=== PATIENT | male | born 1965 | race Caucasian/White ===

== ENCOUNTER 2017-01-12 19:30 | Inpatient (IN) | payer OTHER ==
[~2017-01-12] VITALS: Ht 170.2 cm; Wt 116.4 kg
[2017-01-12 21:25] LABS: BASOPHIL % 0.4 % (0-2); PLATELET COUNT 315 x10^3mcL (130-400); RED CELL DISTRIBUTION WIDTH 13.1 % (11.5-14.5)
[2017-01-12 21:33] LABS: CALCIUM 8.5 mg/dL (8.5-10.1); CARBON DIOXIDE 27.8 mmol/L (21-32); CHLORIDE SERUM 104 mmol/L (98-107); CREATININE SERUM 0.9 mg/dL (0.7-1.3); GFR1 > 60 mL/min; GLUCOSE SERUM 120 mg/dL (74-106); POTASSIUM SERUM 3.6 mmol/L (3.5-5.1); SODIUM SERUM 139 mmol/L (136-145)
[2017-01-12 21:38] LABS: ALBUMIN 3.5 g/dL (3.4-5.0); ALKALINE PHOSPHATASE 81 U/L (46-116); ALT/SGPT 50 U/L (16-63); AST/SGOT 12 U/L (15-37); BILIRUBIN TOTAL 0.3 mg/dL (0.20-1.00); TOTAL PROTEIN, SERUM 7.2 g/dL (6.4-8.2)
[2017-01-12 21:50] LABS: CK-MB 0.8 ng/mL (0-3.6)
[2017-01-13] VITALS (7 sets, daily range): BP systolic 101–122; BP diastolic 54–73
[2017-01-13 06:58] LABS: microscopic required? NO
[2017-01-13 07:10] LABS: BASOPHIL % 0.3 % (0-2); PLATELET COUNT 294 x10^3mcL (130-400); RED CELL DISTRIBUTION WIDTH 12.8 % (11.5-14.5)
[2017-01-13 07:36] LABS: CHOLESTEROL/HDL RATIO 4.3
[2017-01-13 07:37] LABS: CALCIUM 8.3 mg/dL (8.5-10.1); CARBON DIOXIDE 25.6 mmol/L (21-32); CHLORIDE SERUM 106 mmol/L (98-107); CREATININE SERUM 0.8 mg/dL (0.7-1.3); GFR1 > 60 mL/min; GLUCOSE SERUM 101 mg/dL (74-106); PHOSPHOROUS 3.2 mg/dL (2.5-4.9); SODIUM SERUM 140 mmol/L (136-145)
[2017-01-13 07:44] LABS: T3 TOTAL 0.95 ng/mL
[2017-01-13 07:58] LABS: FREE T4 0.87 ng/dL (0.76-1.46); FREE THYROXINE INDEX 2.4 ug/dL (1.4-4.5); T4(THYROXINE) 6.3 ug/dL (4.7-13.3)
[2017-01-13 08:13] LABS: UA SPECIFIC GRAVITY 1.025 (1.005-1.035); urine erythrocyte NEGATIVE (NEGATIVE)
[2017-01-13 16:25] LABS: AMPHETAMINE QUAL UR NONE DETECTED (NEG <=1000)
[2017-01-14 06:32] VITALS: BP 102/59
[2017-01-14 06:35] LABS: BASOPHIL % 0.3 % (0-2); PLATELET COUNT 282 x10^3mcL (130-400); RED CELL DISTRIBUTION WIDTH 12.9 % (11.5-14.5)
[2017-01-14 06:50] LABS: CALCIUM 8.1 mg/dL (8.5-10.1); CARBON DIOXIDE 23.6 mmol/L (21-32); CHLORIDE SERUM 106 mmol/L (98-107); CREATININE SERUM 0.8 mg/dL (0.7-1.3); GFR1 > 60 mL/min; GLUCOSE SERUM 104 mg/dL (74-106); PHOSPHOROUS 3.1 mg/dL (2.5-4.9); POTASSIUM SERUM 4.2 mmol/L (3.5-5.1); SODIUM SERUM 140 mmol/L (136-145)
[2017-01-14 10:19] VITALS: BP 115/69
[2017-01-14] MEDS ORDERED: LIPI10 PO (11:10)
[2017-01-14] MEDS ORDERED: OMEPRAZOLE40 M1 PO (11:11)
[2017-01-14] MEDS ORDERED: ASPIR LOW81 MG PO (11:11)
[2017-01-14 12:49] VITALS: BP 115/69
== END 2017-01-14 13:25 | disposition home or self-care (01) | DRG 243 ==
LOC: ED 19:30 → DU 22:17 → MU 01-14 10:21
PROVIDERS: Emergency Medicine; Family Medicine; ADMIT Family Medicine
DX: K21.9 Gastro-esophageal reflux disease without esophagitis (principal); N17.0 Acute kidney failure with tubular necrosis; Z68.41 Body mass index [BMI] 40.0-44.9, adult; I16.0 Hypertensive urgency; E78.5 Hyperlipidemia, unspecified; E66.01 Morbid (severe) obesity due to excess calories; E78.2 Mixed hyperlipidemia; E83.51 Hypocalcemia; E44.0 Moderate protein-calorie malnutrition; F43.9 Reaction to severe stress, unspecified
CPT/HCPCS: 80307; 83880; 84439; J7030; Q0092